=== PATIENT | female | born 1970 | race Caucasian/White ===

== ENCOUNTER → 2018-01-01 13:44 | Outpatient (CLI) | payer OTHER, SELFPAY ==
--- NOTE | 2018-01-01 | DI.MG.S_ITS ---
BILATERAL DIGITAL SCREENING MAMMOGRAM 3D/2D WITH CAD: 01/01/2018 CLINICAL: Routine screening. Comparison is made to exams dated: 04/14/2016 mammogram, 04/16/2015 mammogram, and 04/09/2015 mammogram - [facility]. There are scattered fibroglandular elements in both breasts. Current study was also evaluated with a Computer Aided Detection (CAD) system. No significant masses, calcifications, or other findings are seen in either breast. There has been no significant interval change. IMPRESSION: NEGATIVE There is no mammographic evidence of malignancy. A 1 year screening mammogram is recommended. This exam was interpreted at Station ID: [id number]. NOTE: For mammograms, a report in lay terms will be sent to the patient. Approximately 15% of breast malignancies will not be visualized mammographically. In the management of a palpable breast mass, a negative mammogram must not discourage biopsy of a clinically suspicious lesion. Electronically Signed By: Freddy birmingham/yanelis:01/03/2018 07:16:46 copy to: Maya Hare letter sent: Normal Exam ACR BI-RADS Category 1: Negative 3341F
== END ==
PROVIDERS: PCP Nurse Practitioner Family; Visit Provider Family Medicine
DX: Z12.31 Encounter for screening mammogram for malignant neoplasm of breast (principal)
CPT/HCPCS: 77063; 77067

== ENCOUNTER → 2019-01-03 11:22 | Outpatient (CLI) | payer OTHER, SELFPAY ==
--- NOTE | 2019-01-03 | DI.MG.S_ITS ---
BILATERAL DIGITAL SCREENING MAMMOGRAM 3D/2D WITH CAD: 01/03/2019 CLINICAL: Routine screening. Comparison is made to exams dated: 01/01/2018 mammogram - [facility], 04/14/2016 mammogram, and 04/16/2015 mammogram - [facility]. There are scattered fibroglandular elements in both breasts. Current study was also evaluated with a Computer Aided Detection (CAD) system. No significant masses, calcifications, or other findings are seen in either breast. There has been no significant interval change. IMPRESSION: NEGATIVE There is no mammographic evidence of malignancy. A 1 year screening mammogram is recommended. This exam was interpreted at Station ID: [id number]. NOTE: For mammograms, a report in lay terms will be sent to the patient. Approximately 15% of breast malignancies will not be visualized mammographically. In the management of a palpable breast mass, a negative mammogram must not discourage biopsy of a clinically suspicious lesion. Electronically Signed By: Torsten bingham/yanelis:01/03/2019 12:13:45 letter sent: Normal Exam ACR BI-RADS Category 1: Negative 3341F
== END ==
PROVIDERS: PCP Nurse Practitioner Family; Visit Provider Nurse Practitioner Family
DX: Z12.31 Encounter for screening mammogram for malignant neoplasm of breast (principal)
CPT/HCPCS: 77063; 77067

== ENCOUNTER → 2019-09-29 12:40 | Outpatient (CLI) | payer OTHER, SELFPAY | PROVIDERS: PCP Nurse Practitioner; Referring Provider Nurse Practitioner; Visit Provider Nurse Practitioner | DX: N94.10 Unspecified dyspareunia (principal); N95.1 Menopausal and female climacteric states | CPT/HCPCS: 36415; 83001 ==

== ENCOUNTER → 2019-10-17 08:00 | Outpatient (CLI) | payer OTHER, SELFPAY ==
--- NOTE | 2019-10-17 08:02 | DI.US.S_ITS ---
PROCEDURE: US PELVIC COMPLETE INDICATIONS: PAIN AFTER INTERCOURSE TECHNIQUE: Real-time scanning was performed of the pelvic organs, with image documentation. Additional endovaginal scanning was necessary due to incomplete visualization of the adnexal and endometrial structures by transabdominal scanning. COMPARISON: [facility], , PELVIC COMPLETE, 08/26/2017, 10:05. FINDINGS: Transabdominal scanning: Limited scanning through the kidneys shows no hydronephrosis. No pathologic free abdominal or pelvic fluid. Endovaginal scanning: Uterus: Uterus is normal in size at 10.2 x 5.4 x 6.6 cm. The endometrium measures 11.3 mm in combined thickness. Ovaries: The right ovary measures 1.9 x 1.1 x 1.3 cm and demonstrates normal echotexture. The left ovary is not visualized. IMPRESSION: Unremarkable pelvic ultrasound. Nonvisualization of left ovary. No findings to explain patient's symptoms. Dictated by: Stefanie Dee M.D. on 10/17/2019 at 14:47 Approved by: Stefanie Dee M.D. on 10/17/2019 at 14:51
== END ==
PROVIDERS: PCP Nurse Practitioner; Referring Provider Nurse Practitioner; Visit Provider Nurse Practitioner
DX: N94.10 Unspecified dyspareunia (principal)
CPT/HCPCS: 76830; 76856

== ENCOUNTER → 2020-03-28 14:10 | Outpatient (CLI) | payer OTHER, SELFPAY ==
[2020-03-29 14:12] LABS: COVID19 Sendout Not Detected (Not Detected)
== END ==
PROVIDERS: PCP Nurse Practitioner; Visit Provider Physician Assistant
DX: Z11.59 Encounter for screening for other viral diseases (principal); R52 Pain, unspecified
CPT/HCPCS: 87635

== ENCOUNTER → 2020-09-03 13:19 | Outpatient (CLI) | payer BC, SELFPAY ==
[2020-09-03 14:17] LABS: COVID19 -Nasal RAPID Negative (Negative)
[2020-09-03 14:30] LABS: Influenza A - CEPHEID Flu A NEGATIVE (NEGATIVE); Influenza B - CEPHEID Flu B NEGATIVE (NEGATIVE)
== END ==
PROVIDERS: PCP Nurse Practitioner; Referring Provider Family Medicine; Visit Provider Family Medicine
DX: Z20.822 Contact with and (suspected) exposure to COVID-19 (principal); R05 Cough; R09.89 Other specified symptoms and signs involving the circulatory and respiratory systems
CPT/HCPCS: 87502; 87635

== ENCOUNTER → 2020-09-03 14:12 | Outpatient (CLI) | payer BC, SELFPAY ==
--- NOTE | 2020-09-03 14:16 | DI.RAD.S_ITS ---
PROCEDURE: XR CHEST 2V INDICATIONS: cough, chest congestion TECHNIQUE: 2 views of the chest were acquired. COMPARISON: None. FINDINGS: Surgical changes and devices: None. Lungs and pleura: Lungs are clear. No pleural effusions or pneumothorax. Mediastinum: Mediastinal contours are normal. Heart size is normal. Bones and chest wall: No suspicious bony abnormalities. Soft tissues appear unremarkable. IMPRESSION: Normal for age, source of current cough symptoms is not seen. Dictated by: Lloyd Gastelum M.D. on 09/03/2020 at 15:17 Approved by: Lloyd Gastelum M.D. on 09/03/2020 at 15:17
== END ==
PROVIDERS: PCP Nurse Practitioner; Referring Provider Family Medicine; Visit Provider Family Medicine
DX: Z20.822 Contact with and (suspected) exposure to COVID-19 (principal); R05 Cough; R09.89 Other specified symptoms and signs involving the circulatory and respiratory systems
CPT/HCPCS: 71046; 87502; 87635

== ENCOUNTER → 2021-04-24 07:05 | Outpatient (CLI) | payer OTHER, SELFPAY ==
--- NOTE | 2021-04-24 07:56 | DI.RAD.S_ITS ---
PROCEDURE: XR KUB INDICATIONS: L flank pain r/o kidney stone TECHNIQUE: One view of the abdomen acquired. COMPARISON: None. FINDINGS: Surgical changes and devices: None. Bowel: Prominent stool in the colon. Scattered small bowel and colonic gas. No air-fluid levels. Soft tissues: No kidney stones identified. No suspicious abdominal calcifications. Visualized solid organ contours appear normal in size. Bones: No suspicious bony lesions. IMPRESSION: No kidney stones identified. Prominent stool in the colon. If clinically indicated consider CT abdomen pelvis with IV contrast for further evaluation. Dictated by: Frank Duff M.D. on 04/24/2021 at 8:40 Approved by: Frank Duff M.D. on 04/24/2021 at 8:42
[2021-04-24 08:07] LABS: Appearance Urine UA SL CLOUDY; Bilirubin Urine UA NEGATIVE (NEGATIVE); Color Urine UA YELLOW; Glucose Urine UA TRACE g/dL (Negative); Ketones Urine UA NEGATIVE (NEGATIVE); Leukocyte Esterase Urine UA 2+ (NEGATIVE); Nitrite Urine UA NEGATIVE (Negative); Occult Blood Urine UA 3+ (Negative); Protein Urine UA 1+ (Negative); Specific Gravity Urine UA 1.025 (1.000-1.035); Urobilinogen Urine UA 0.2 E.U./dL (0.2)
[2021-04-24 08:32] LABS: Bacteria Urine Many (>30); RBC Urine 10-30/HPF (0-5/HPF); Squamous Epithelial Cell Urine 10-30 /HPF (0-5/HPF); WBC Urine 10-30/HPF (0-5/HPF)
[2021-04-24 08:57] LABS: Alanine Aminotransferase 16 IU/L (<35); Albumin 4.4 g/dL (3.5-5.0); Albumin Globulin Ratio 1.3 (1.0-2.8); Alkaline Phosphatase 95 U/L (38-126); Aspartate Aminotransferase 26 IU/L (14-36); BUN Creatinine Ratio 14.3 (6-22); Bilirubin Total 0.7 mg/dL (0.2-1.3); Blood Urea Nitrogen 13 mg/dL (7-17); Calcium 9.3 mg/dL (8.4-10.2); Carbon Dioxide 23 mmol/L (22-32); Chloride 106 mmol/L (98-107); Estimated Glomerular Filt Rate > 60.0 mL/min (>60); Globulin 3.4 g/dL (1.7-4.1); Glucose 118 mg/dL (70-100); HEMOLYSIS < 15 (0-50); Potassium 4.5 mmol/L (3.4-5.1); Sodium 136 mmol/L (137-145); Total Protein 7.8 g/dL (6.3-8.2)
[2021-04-24 08:58] LABS: Basophils Absolute Auto 100 /uL (0-100); Basophils Percent Auto 0.5 % (0-2); Eosinophils Absolute Auto 0 /uL (0-450); Eosinophils Percent Auto 0.2 % (2-4); Hematocrit 39.4 % (36-46); Hemoglobin 12.9 g/dL (12.0-16.0); Lymphocytes Absolute Auto 1700 /uL (1100-4500); Lymphocytes Percent Auto 16.2 % (25-40); Mean Corpuscular HGB Conc 32.7 % (30-36); Mean Corpuscular Hemoglobin 28.7 PG (26-34); Mean Corpuscular Volume 87.7 fL (80-100); Monocytes Absolute Auto 600 /uL (0-900); Monocytes Percent Auto 5.5 % (3-14); Neutrophils Absolute Auto 8000 /uL (1500-7000); Neutrophils Percent Auto 77.6 % (50-75); Platelet Count 171 X10^3/uL (150-400); Red Blood Cell Count 4.49 X10^6/uL (4.0-5.2); Red Cell Distribution Width 14.6 % (11.6-14.8); White Blood Cell Count 10.3 X10^3/uL (4.5-11.0)
[2021-04-24 09:00] LABS: Add Manual Diff / Slide Review SLIDE REVIEW
[2021-04-24 09:13] LABS: RBC Morphology Normal Morphology
[2021-04-24 09:14] LABS: Platelet Estimate Adequate on smear
== END ==
PROVIDERS: PCP Nurse Practitioner; Referring Provider Nurse Practitioner; Visit Provider Nurse Practitioner
DX: R30.0 Dysuria (principal); R10.9 Unspecified abdominal pain; M54.5 Low back pain
CPT/HCPCS: 36415; 74018; 80053; 81001; 85025; 87086

== ENCOUNTER → 2021-06-05 10:01 | Outpatient (CLI) | payer OTHER, SELFPAY ==
[2021-06-05 10:40] LABS: Appearance Urine UA CLOUDY; Bilirubin Urine UA NEGATIVE (NEGATIVE); Color Urine UA YELLOW; Glucose Urine UA NEGATIVE (Negative); Ketones Urine UA NEGATIVE (NEGATIVE); Leukocyte Esterase Urine UA TRACE (NEGATIVE); Nitrite Urine UA NEGATIVE (Negative); Occult Blood Urine UA 3+ (Negative); Protein Urine UA 1+ (Negative); Specific Gravity Urine UA 1.015 (1.000-1.035); Urobilinogen Urine UA 0.2 E.U./dL (0.2)
[2021-06-05 10:55] LABS: RBC Urine 10-30/HPF (0-5/HPF); WBC Urine 5-10/HPF (0-5/HPF)
[2021-06-05 10:56] LABS: Bacteria Urine None Seen; Culture Indicated Urine Specimen Cultured
== END ==
PROVIDERS: PCP Nurse Practitioner; Referring Provider Nurse Practitioner; Visit Provider Nurse Practitioner
DX: N12 Tubulo-interstitial nephritis, not specified as acute or chronic (principal)
CPT/HCPCS: 81001; 87077; 87086

== ENCOUNTER → 2021-06-16 10:05 | Outpatient (CLI) | payer OTHER, SELFPAY ==
--- NOTE | 2021-06-16 10:06 | DI.CT.S_ITS ---
PROCEDURE: CT KIDNEY URETER BLADDER (KUB) INDICATIONS: continued hematuria, flank pain on left TECHNIQUE: Axial sections were acquired from the lung bases to the pubic symphysis. Coronal and sagittal reformats were performed. For radiation dose reduction, the following was used: automated exposure control, adjustment of mA and/or kV according to patient size. COMPARISON: None. FINDINGS: Image quality: Excellent. Lung bases: Unremarkable. Heart: No cardiomegaly. Trace inferior pericardial effusion versus thickening. URINARY: Right Kidney: No stones or hydronephrosis. Right Ureter: No hydroureter. Left Kidney: Mild hydronephrosis and perinephric stranding with 7.1 mm, nonproductive calculus in the lower pole. Left Ureter: No hydroureter. Bladder: Normal wall thickness. No stones. ABDOMEN: Liver: Unremarkable. 8.1 mm hypoattenuating lesion in left hepatic lobe, which may reflect a cyst. Gallbladder: Unremarkable. Biliary ducts: Unremarkable. Pancreas: Unremarkable. Spleen: Unremarkable. Adrenal Glands: Unremarkable. Stomach and Bowel: Stomach, small bowel loops, and colon are unremarkable. Peritoneum: No abnormal intraperitoneal fluid. No free air. Ventral Wall: Trace fat containing periumbilical hernia. Abdominal Nodes: No enlarged retroperitoneal or mesenteric lymph nodes. Vessels: Aorta and inferior vena cava are normal in size. PELVIS: Pelvic Organs: Unremarkable. Pelvic Nodes: Unremarkable. Miscellaneous: No inguinal hernias are seen. Bones: Unremarkable. Degenerative change of the lower lumbar spine. IMPRESSION: 1. Mild left hydronephrosis and perinephric stranding, suggesting recent calculus passage. Dictated by: Oc Woodward M.D. on 06/16/2021 at 11:09 Approved by: Oc Woodward M.D. on 06/16/2021 at 11:17
== END ==
PROVIDERS: PCP Nurse Practitioner; Referring Provider Nurse Practitioner; Visit Provider Nurse Practitioner
DX: R10.9 Unspecified abdominal pain (principal); R30.0 Dysuria; R31.9 Hematuria, unspecified; N13.30 Unspecified hydronephrosis
CPT/HCPCS: 74176

== ENCOUNTER → 2021-07-14 11:26 | Outpatient (CLI) | payer OTHER, SELFPAY ==
--- NOTE | 2021-07-14 11:27 | DI.RAD.S_ITS ---
PROCEDURE: XR KUB INDICATIONS: Kidney stone TECHNIQUE: One view of the abdomen acquired. COMPARISON: [facility], CT, CT KIDNEY URETER BLADDER (KUB), 06/16/2021, 10:14. [facility], CR, XR KUB, 04/24/2021, 7:59. FINDINGS: Surgical changes and devices: None. Bowel: Bowel gas pattern is normal. Soft tissues: No suspicious abdominal calcifications. Visualized solid organ contours appear normal in size. Bones: No suspicious bony lesions. IMPRESSION: The left kidney stone seen on the prior CT is not visualized on this plain radiograph. Dictated by: Lj Zimmerman M.D. on 07/14/2021 at 17:16 Approved by: Lj Zimmerman M.D. on 07/14/2021 at 17:19
== END ==
PROVIDERS: PCP Nurse Practitioner; Referring Provider Specialist; Visit Provider Specialist
DX: N12 Tubulo-interstitial nephritis, not specified as acute or chronic (principal); R10.9 Unspecified abdominal pain; R30.0 Dysuria
CPT/HCPCS: 74018

== ENCOUNTER → 2021-07-16 14:26 | Outpatient (CLI) | payer OTHER, SELFPAY ==
--- NOTE | 2021-07-16 14:26 | DI.CT.S_ITS ---
PROCEDURE: CT ABDOMEN PELVIS W CON INDICATIONS: Kidney stone TECHNIQUE: After the administration of oral and IV contrast, axial sections were acquired from the lung bases to the pubic symphysis. Coronal and sagittal reformats were performed. For radiation dose reduction, the following was used: automated exposure control, adjustment of mA and/or kV according to patient size. COMPARISON: [facility], CT, CT KIDNEY URETER BLADDER (KUB), 06/16/2021, 10:14. FINDINGS: Image quality: Excellent. Lung bases: Unremarkable. Heart: No significant findings. ABDOMEN: Liver: Normal enhancement and contour. 8.5 mm hypoattenuating lesion in left hepatic lobe, likely reflecting a cyst. Gallbladder: No gallbladder wall thickening or pericholecystic fluid. No calcified gallstones. Biliary ducts: Unremarkable. Pancreas: Unremarkable. Spleen: Unremarkable. Adrenal Glands: Unremarkable. Kidneys and Ureters: Symmetric enhancement. 7 mm calculus in the left lower pole, which is nonobstructive. Redemonstrated mild infiltrative change of the left renal pelvis, which may reflect recent calculus passage. No hydroureter. Stomach and Bowel: No evidence of intestinal obstruction. Normal appendix. Peritoneum: No abnormal intraperitoneal fluid. No free air. Ventral Wall: Trace periumbilical hernia. Abdominal Nodes: No retroperitoneal or mesenteric adenopathy by size criteria. Vessels: Aorta and inferior vena cava are normal in size. PELVIS: Pelvic Organs: Unremarkable. Bladder: Unremarkable. Pelvic Nodes: No enlarged lymph nodes. Miscellaneous: No inguinal hernias are seen. Bones: [id number]-[id number] disc height loss with vacuum phenomena at L4-5. IMPRESSION: 1. Persistent mild infiltrative change of the left renal pelvis, which may reflect recent calculus passage and/or scarring. Dictated by: Oc Woodward M.D. on 07/16/2021 at 15:45 Approved by: Oc Woodward M.D. on 07/16/2021 at 15:54
== END ==
PROVIDERS: PCP Nurse Practitioner; Referring Provider Specialist; Visit Provider Specialist
DX: N20.0 Calculus of kidney (principal); N12 Tubulo-interstitial nephritis, not specified as acute or chronic; R10.9 Unspecified abdominal pain; R30.0 Dysuria; K76.9 Liver disease, unspecified
CPT/HCPCS: 74177; Q9967

== ENCOUNTER → 2021-08-11 13:02 | Outpatient (CLI) | payer OTHER, SELFPAY ==
--- NOTE | 2021-08-11 13:03 | DI.MG.S_ITS ---
BILATERAL DIGITAL SCREENING MAMMOGRAM 3D/2D WITH CAD: 08/11/2021 CLINICAL: Routine screening. Comparison is made to exams dated: 01/03/2019 mammogram, 01/01/2018 mammogram - [facility], and 04/14/2016 mammogram - [facility]. There are scattered fibroglandular elements in both breasts. Current study was also evaluated with a Computer Aided Detection (CAD) system. No significant masses, calcifications, or other findings are seen in either breast. There has been no significant interval change. IMPRESSION: NEGATIVE There is no mammographic evidence of malignancy. A 1 year screening mammogram is recommended. This exam was interpreted at Station ID: [id number]. NOTE: For mammograms, a report in lay terms will be sent to the patient. Approximately 15% of breast malignancies will not be visualized mammographically. In the management of a palpable breast mass, a negative mammogram must not discourage biopsy of a clinically suspicious lesion. Electronically Signed By: Freddy birmingham/yanelis:08/11/2021 14:54:57 letter sent: Normal Exam ACR BI-RADS Category 1: Negative 3341F
== END ==
PROVIDERS: PCP Nurse Practitioner; Referring Provider Nurse Practitioner; Visit Provider Nurse Practitioner
DX: Z12.31 Encounter for screening mammogram for malignant neoplasm of breast (principal)
CPT/HCPCS: 77063; 77067

== ENCOUNTER → 2022-01-07 10:07 | Outpatient (CLI) | payer OTHER, SELFPAY ==
[2022-01-07 11:31] LABS: COVID19 -Nasal RAPID Negative (Negative)
== END ==
PROVIDERS: PCP Nurse Practitioner; Visit Provider Surgery
DX: Z20.822 Contact with and (suspected) exposure to COVID-19 (principal); Z01.812 Encounter for preprocedural laboratory examination
CPT/HCPCS: 87635; C9803

== ENCOUNTER 2022-01-08 07:16 | Day surgery (SDC) | payer OTHER, SELFPAY ==
[2022-01-08 07:44] VITALS: BP 147/87; PULSE 105; RESP 15; TEMP 36.1; O2SAT 99; BMI 30.7
[2022-01-08] MEDS: LACTATED RINGERS 1,000 ML 42 ML IV (07:53)
--- NOTE | 2022-01-08 08:45 | PM.HP.1 ---
History of Present Illness History of Present Illness Date Patient Seen: 01/08/22 Time Patient Seen: 08:45 Chief complaint: SCREENING COLONOSCOPY Narrative: Silke is here for her screening colonoscopy. She has never had a colonoscopy before. She has no known family history of colon cancer. She has normal bowel movements with no noted blood or melena. Patient History Medical History Acute bronchitis Anxiety (~2004) Chicken pox (~1977) Left nephrolithiasis Measles (~1970) Family & Social History Family History Father Melanoma Essential tremor Mother Melanoma Grandfather Cirrhosis Grandmother Multiple organ failure Grandfather Stroke Grandmother Essential tremor Social History: household members spouse Tobacco & Substance use: Smoking Status Never smoker alcohol intake current alcohol intake frequency holiday/special occasion Substance Use Type does not use Meds Home Medications and Allergies Allergies Allergy/AdvReac Type Severity Reaction Status Date / Time amoxicillin AdvReac Severe Hives Verified 01/08/22 07:50 Exam Vital Signs (past 8 hours): - 01/08/22 07:44 Temperature 97 F L Pulse Rate 105 H Respiratory Rate 15 Blood Pressure 147/87 H Pulse Oximetry 99 Oxygen Delivery Method Room Air Const General: healthy appearing Eyes General: appearance normal, both eyes and all related structures Assessment & Plan Assessment and plan (1) Colon cancer screening: Status: Acute Plan We discussed the risks benefits and rationale for colonoscopy for colon cancer screening. She would like to proceed. COVID-19 COVID-19 status: Negative Result date/Date tested (Pos, Neg/Pending): 01/07/22 Time Spent With Patient Critical Care time: I spent a total of [] minutes of critical care time on this patient's care today; this time is exclusive of procedural time.
[2022-01-08] MEDS: MIDAZOLAM 5 MG/5 ML VIAL 9 MG IV (09:24)
[2022-01-08] MEDS: fentaNYL 250 MCG/5 ML INJ 225 MCG IV (09:25)
[2022-01-08 09:28] VITALS: BP 117/72; PULSE 81; RESP 13; O2SAT 97
--- NOTE | 2022-01-08 09:28 | PM.OP.COLON ---
Operative Date/Time/Diagnoses Date of procedure: 01/08/22 Time of procedure: 09:28 Pre-op diagnosis: Colon cancer screening Post-op diagnosis: same Procedure & Clinicians Study performed: Colonoscopy Same procedure as scheduled: Yes Surgeon: Reinaldo Durand Procedure Notes Procedure in detail: Surgeon: Reinaldo Durand MD Procedure: The patient was brought to the endoscopy suite, placed in left lateral decubitus position. The patient was connected to monitoring devices. A time-out was performed. Sedation was administered. Once the patient was adequately sedated, a digital rectal exam was performed and was normal. The scope was then inserted and advanced to the cecum where the appendiceal orifice was identified and photographed. The scope was then slowly withdrawn over greater than 6 minutes. Mucosa was thoroughly inspected. No abnormalities were noted. The scope was retroflexed in the rectum. No abnormalities were noted. The scope was straightened and removed. The patient was awakened and brought to recovery. Versed: 9 mg Fentanyl: 225 mcg EBL: 0 Findings: Normal colon Scope withdrawal time: 10 Sedation minutes: 35 Post-procedure Recommendations: Colonoscopy in 10 years Disposition: PACU
[2022-01-08 09:33] VITALS: BP 112/71; PULSE 74; RESP 13; O2SAT 97
[2022-01-08 09:38] VITALS: BP 115/71; PULSE 79; RESP 13; O2SAT 98
[2022-01-08 09:43] VITALS: BP 114/71; PULSE 83; RESP 16; O2SAT 98
[2022-01-08 09:44] VITALS: BP 110/78; PULSE 80; RESP 19; O2SAT 100
== END 2022-01-08 09:54 | disposition home or self-care (01) ==
PROVIDERS: PCP Nurse Practitioner; Referring Provider Surgery; Visit Provider Surgery
PROC: 0DJD8ZZ Inspection of Lower Intestinal Tract, Via Natural or Artificial Opening Endoscopic (ICD-10-PCS; CPT 45378; principal; 2022-01-08 08:30)
DX: Z12.11 Encounter for screening for malignant neoplasm of colon (principal)
CPT/HCPCS: 45378; 99152; 99153; J2250; J3010

== ENCOUNTER → 2022-07-07 10:13 | Outpatient (CLI) | payer OTHER, SELFPAY ==
[2022-07-07 10:49] LABS: Basophils Absolute Auto 0 /uL (0-100); Basophils Percent Auto 0.8 % (0-2); Eosinophils Absolute Auto 100 /uL (0-450); Hematocrit 39.6 % (36-46); Hemoglobin 13.4 g/dL (12.0-16.0); Lymphocytes Absolute Auto 2700 /uL (1100-4500); Lymphocytes Percent Auto 45.9 % (25-40); Mean Corpuscular HGB Conc 33.9 % (30-36); Mean Corpuscular Hemoglobin 30.1 PG (26-34); Mean Corpuscular Volume 88.7 fL (80-100); Monocytes Absolute Auto 500 /uL (0-900); Monocytes Percent Auto 8.3 % (3-14); Neutrophils Absolute Auto 2600 /uL (1500-7000); Red Blood Cell Count 4.46 X10^6/uL (4.0-5.2); Red Cell Distribution Width 13.3 % (11.6-14.8); White Blood Cell Count 5.8 X10^3/uL (4.5-11.0)
[2022-07-07 10:52] LABS: Add Manual Diff / Slide Review SLIDE REVIEW
[2022-07-07 11:02] LABS: Alanine Aminotransferase 26 IU/L (<35); Albumin 4.3 g/dL (3.5-5.0); Albumin Globulin Ratio 1.2 (1.0-2.8); Alkaline Phosphatase 107 U/L (38-126); Aspartate Aminotransferase 28 IU/L (14-36); BUN Creatinine Ratio 10.1 (6-22); Bilirubin Total 0.4 mg/dL (0.2-1.3); Blood Urea Nitrogen 8 mg/dL (7-17); Calcium 9.3 mg/dL (8.4-10.2); Carbon Dioxide 25 mmol/L (22-32); Chloride 103 mmol/L (98-107); Cholesterol 232 mg/dL (140-199); Estimated Glomerular Filt Rate > 60 mL/min (>60); Globulin 3.7 g/dL (1.7-4.1); Glucose 97 mg/dL (70-100); HDL Cholesterol 57 mg/dL (40-60); HEMOLYSIS < 15 (0-50); LDL Cholesterol Calculated 147 mg/dL (<100); Potassium 4.3 mmol/L (3.4-5.1); Sodium 138 mmol/L (137-145); Triglycerides 141 mg/dL (35-150)
[2022-07-07 11:18] LABS: Follicle Stimulating Hormone 35.2 mIU/mL
[2022-07-07 11:32] LABS: Platelet Estimate Adequate on smear; RBC Morphology Normal Morphology
[2022-07-07 11:34] LABS: Platelet Count 170 X10^3/uL (150-400)
[2022-07-07 11:57] LABS: Hep C Virus Ab w/Reflex Quant NEGATIVE s/c (NEGATIVE)
[2022-07-07 12:35] LABS: Creatinine Urine Random 44.1 mg/dL
[2022-07-07 12:39] LABS: Microalbumi Creatinin Ratio Ur 31.7 ug/mg CR (<30); Microalbumin Urine Random 1.4 mg/dL (0-1.6)
[2022-07-07 13:15] LABS: Free T3, Triiodothyronine Free 2.92 pg/mL (2.77-5.27); Free T4, Direct Thyroxine 0.95 ng/dL (0.78-2.19)
== END ==
PROVIDERS: PCP Nurse Practitioner; Referring Provider Nurse Practitioner; Visit Provider Nurse Practitioner
DX: Z00.00 Encounter for general adult medical examination without abnormal findings (principal); Z11.59 Encounter for screening for other viral diseases; N91.2 Amenorrhea, unspecified
CPT/HCPCS: 36415; 80053; 80061; 82043; 82570; 83001; 84439; 84443; 84481; 85025; 86803

== ENCOUNTER → 2022-08-11 08:46 | Outpatient (CLI) | payer OTHER, SELFPAY ==
--- NOTE | 2022-08-11 08:46 | DI.US.S_ITS ---
PROCEDURE: US PELVIC COMPLETE INDICATIONS: POSTMENOPAUSAL BLEEDING TECHNIQUE: Real-time scanning was performed of the pelvic organs, with image documentation. Additional endovaginal scanning was necessary due to incomplete visualization of the adnexal and endometrial structures by transabdominal scanning. COMPARISON: [facility], , US PELVIC COMPLETE, 10/17/2019, 8:21. FINDINGS: Uterus: The uterus is normal in size at 8.4 x 5.6 x 3 cm. The overall uterine echotexture is heterogeneous. The endometrial stripe is thickened at 13 mm. No associated abnormal vascularity can be seen along the endometrial stripe. A cluster of cysts can be seen involving the cervix, with associated calcification. Ovaries: The right ovary measures 18 x 10 x 14 mm, with a volume of 1.3 cc. The right ovary is unremarkable. The left ovary is not well seen. Other: No pathologic free abdominal or pelvic fluid. IMPRESSION: The endometrial stripe is thickened in this patient with a given history of postmenopausal bleeding. Differential diagnosis includes endometrial neoplasm and endometrial hyperplasia. Recommend correlation with endometrial histology, if clinically appropriate. We strive to produce accurate, complete, and clear reports of imaging services. To assist us in improving patient care, this report was composed using standard report templates and voice recognition software. Therefore, it may contain abnormal punctuation, insertions and/or omissions. Occasional wrong-word or sound-alike substitutions may occur. Though we review the report and make efforts to correct it, we do recommend that the report be read carefully in proper context to recognize any text inaccuracies. Dictated by: Davide Hdz M.D. on 08/11/2022 at 14:00 Approved by: Davide Hdz M.D. on 08/11/2022 at 14:02
== END ==
PROVIDERS: PCP Nurse Practitioner; Referring Provider Nurse Practitioner; Visit Provider Nurse Practitioner
DX: N95.0 Postmenopausal bleeding (principal); R93.89 Abnormal findings on diagnostic imaging of other specified body structures
CPT/HCPCS: 76830; 76856

== ENCOUNTER → 2022-10-14 14:50 | Outpatient (CLI) | payer OTHER, SELFPAY ==
--- NOTE | 2022-10-14 14:51 | DI.MG.S_ITS ---
BILATERAL DIGITAL SCREENING MAMMOGRAM 3D/2D WITH CAD: 10/14/2022 CLINICAL: Routine screening. Comparison is made to exams dated: 01/03/2019 mammogram, 01/01/2018 mammogram - [facility], 04/14/2016 mammogram - [facility], and 08/11/2021 mammogram - [facility]. There are scattered areas of fibroglandular density in both breasts (category b / 25%-50% glandular tissue). Current study was also evaluated with a Computer Aided Detection (CAD) system. No significant masses, calcifications, or other findings are seen in either breast. There has been no significant interval change. IMPRESSION: NEGATIVE There is no mammographic evidence of malignancy. A 1 year screening mammogram is recommended. Based on the Tyrer Cuzick model (a risk assessment model) the patient's lifetime risk is 9.5% and her 10 year risk is 2.6%. According to the ACR, ACS, and NCCN guidelines, an annual breast MRI exam along with mammogram is recommended if the patient's lifetime risk is 20% or greater. This exam was interpreted at Station ID: [id number]. NOTE: For mammograms, a report in lay terms will be sent to the patient. Approximately 15% of breast malignancies will not be visualized mammographically. In the management of a palpable breast mass, a negative mammogram must not discourage biopsy of a clinically suspicious lesion. Electronically Signed By: Frank narayan/yanelis:10/14/2022 16:26:18 letter sent: Normal Exam ACR BI-RADS Category 1: Negative 3341F
== END ==
PROVIDERS: PCP Nurse Practitioner; Referring Provider Nurse Practitioner; Visit Provider Nurse Practitioner
DX: Z12.31 Encounter for screening mammogram for malignant neoplasm of breast (principal)
CPT/HCPCS: 77063; 77067

== ENCOUNTER → 2023-02-03 06:50 | Outpatient (CLI) | payer OTHER, SELFPAY ==
--- NOTE | 2023-02-03 06:52 | DI.US.S_ITS ---
PROCEDURE: US PELVIC COMPLETE INDICATIONS: CHECK IUD PLACEMENT TECHNIQUE: Real-time scanning was performed of the pelvic organs, with image documentation. Additional endovaginal scanning was necessary due to incomplete visualization of the adnexal and endometrial structures by transabdominal scanning. COMPARISON: [facility], US, US PELVIC COMPLETE, 08/11/2022, 9:15. FINDINGS: Uterus: Uterus is anteverted and normal in size at 8.7 x 4.7 x 5.4 cm. The myometrium is homogeneous. The endometrium measures 6 mm combined thickness. An intrauterine device is identified within the endometrial cavity and appears appropriately positioned. Ovaries: The right ovary measures 2.0 x 1.8 x 1.0 cm, with a calculated ovarian volume of 1.9 cc. Left ovary is not visualized on this exam. The right ovary has a normal sonographic appearance. Less than 12 follicles can be seen in each ovary. No adnexal masses are seen. Other: No pathologic free abdominal or pelvic fluid. IMPRESSION: An intrauterine device is in place and appears to be appropriately positioned within the endometrial cavity. We strive to produce accurate, complete, and clear reports of imaging services. To assist us in improving patient care, this report was composed using standard report templates and voice recognition software. Therefore, it may contain abnormal punctuation, insertions and/or omissions. Occasional wrong-word or sound-alike substitutions may occur. Though we review the report and make efforts to correct it, we do recommend that the report be read carefully in proper context to recognize any text inaccuracies. Dictated by: Torsten Briseno M.D. on 02/03/2023 at 7:36 Approved by: Torsten Briseno M.D. on 02/03/2023 at 7:38
== END ==
PROVIDERS: PCP Nurse Practitioner; Referring Provider Obstetrics & Gynecology; Visit Provider Obstetrics & Gynecology
DX: R10.2 Pelvic and perineal pain (principal); Z97.5 Presence of (intrauterine) contraceptive device
CPT/HCPCS: 76830; 76856